=== PATIENT | female | born 1980 | race Two or more races ===

== ENCOUNTER 2022-10-27 20:03 | Emergency (ER) | payer SELFPAY ==
[~2022-10-27] VITALS: Ht 165.1 cm; Wt 59.0 kg
[2022-10-27] MEDS ORDERED: HYDROcodone-ACET 10/325MG TAB PO ONE (20:15)
[2022-10-27] MEDS ORDERED: HYDROmorphone HCL 2 MG/ML VL/or syr IM ONE (20:30)
[2022-10-27] MEDS ORDERED: AMOX500T86 PO (20:50)
[2022-10-27] MEDS ORDERED: IBU600T PO (20:50)
[2022-10-27] MEDS ORDERED: cefTRIAXone SOD 1,000 MG VL IM ONE (21:00)
[2022-10-28 00:43] VITALS: BP 111/63
== END 2022-10-28 00:49 | disposition home or self-care (01) ==
LOC: EDBD 20:03 → ER 20:08
DX: R51.9 Headache, unspecified (principal); J32.9 Chronic sinusitis, unspecified
CPT/HCPCS: 70450; 96372; 99284; J0696; J1170

== ENCOUNTER 2024-02-15 02:20 | Emergency (ER) | payer OTHER ==
[~2024-02-15] VITALS: Ht 160 cm; Wt 29.0 kg
[~2024-02-15 02:20] MED LIST: AMOX500T86 PO; IBU600T PO
[2024-02-15 02:30] VITALS: BP 130/74; PULSE 76; RESP 17; TEMP 97.8; O2SAT 100
[2024-02-15] MEDS ORDERED: IBUP1TAB5 PO (04:27)
[2024-02-15] MEDS ORDERED: CYCL-839 PO (04:27)
[2024-02-15] MEDS: IBUPROFEN 600 MG TAB PO ONE (05:00)
== END 2024-02-15 07:26 | disposition home or self-care (01) ==
LOC: ER 02:20
DX: S13.8XXA Sprain of joints and ligaments of other parts of neck, initial encounter (principal); S23.3XXA Sprain of ligaments of thoracic spine, initial encounter; S33.5XXA Sprain of ligaments of lumbar spine, initial encounter; S53.492A Other sprain of left elbow, initial encounter; S43.491A Other sprain of right shoulder joint, initial encounter; Z79.899 Other long term (current) drug therapy; V89.2XXA Person injured in unspecified motor-vehicle accident, traffic, initial encounter; Y93.89 Activity, other specified; Y92.89 Other specified places as the place of occurrence of the external cause; Y99.8 Other external cause status
CPT/HCPCS: 72040; 72070; 72100; 73030; 73080